=== PATIENT | male | born 1965 | race Caucasian/White ===

== ENCOUNTER 2021-10-15 19:54 | Inpatient (IN) | payer OTHER ==
[~2021-10-15] VITALS: Ht 190.5 cm; Wt 84.1 kg
[2021-10-15 20:37] LABS: BASOPHILS % (AUTO) 0.2 % (0-1); EOSINOPHILS % (AUTO) 0 % (0-6); LYMPHOCYTES # (AUTO) 1.2 X10'3 (1.1-4.8); LYMPHOCYTES % (AUTO) 11.7 % (21-51); MEAN CORPUSCULAR HEMOGLOBIN 31.2 PG (27.0-31.0); MEAN CORPUSCULAR HGB CONC 33.4 g/dL (33.0-36.5); MEAN CORPUSCULAR VOLUME 93.6 FL (78-98); MEAN PLATELET VOLUME 6.9 FL (7.4-10.4); MONOCYTES # (AUTO) 0.7 X10'3 (0-0.9); MONOCYTES % (AUTO) 6.2 % (2-12); NEUTROPHILS # (AUTO) 8.7 X10'3 (1.8-7.7); NEUTROPHILS % (AUTO) 81.9 % (42-75); PLATELET COUNT 284 X10'3 (140-440); RED BLOOD COUNT 5.45 X10'6 (4.70-6.10); WHITE BLOOD COUNT 10.6 X10'3 (4.5-11.0)
[2021-10-15 20:51] LABS: ALANINE AMINOTRANSFERASE 31 U/L (12-78); ALBUMIN 4.1 G/DL (3.4-5.0); ALBUMIN/GLOBULIN RATIO 1.1 (1.1-1.5); ALKALINE PHOSPHATASE 88 IU/L (46-116); ANION GAP 9 (8-16); ASPARTATE AMINO TRANSFERASE 25 U/L (10-37); BILIRUBIN,TOTAL 0.8 MG/DL (0.1-1.0); BLOOD UREA NITROGEN 17 MG/DL (7-18); BUN/CREATININE RATIO 16.3 (5.4-32.0); CALCIUM 9.1 MG/DL (8.5-10.1); CHLORIDE 103 MMOL/L (99-107); CREATININE 1.04 MG/DL (0.60-1.10); GLUCOSE 108 MG/DL (70-104); LIPASE 53 U/L (73-393); SODIUM 139 MMOL/L (135-145); TOTAL CARBON DIOXIDE 26.8 MMOL/L (24-32); TOTAL PROTEIN 7.9 G/DL (6.4-8.2); eGFR 74 ML/MIN
[2021-10-15 21:28] LABS: CLARITY,URINE SLIGHTLY CLOUDY (Clear); COLOR,URINE YELLOW (Yellow); GLUCOSE, URINE NEGATIVE (Neg); KETONES,URINE 40 mg/dl (Neg); LEUKOCYTE ESTERASE ,URINE NEGATIVE (Neg); NITRITES, URINE NEGATIVE (Neg); OCCULT BLOOD,URINE NEGATIVE (Neg); PROTEIN,URINE TRACE mg/dl (Neg); UROBILINOGEN,URINE 0.2 E.U/dL (0.2-1.0)
[2021-10-15 21:32] LABS: UA COLLECTION TYPE CLN CATCH MIDSTREAM
[2021-10-15 21:37] LABS: BACTERIA,URINE FEW /HPF (Neg); RBC,URINE 0-2 /HPF (0-2); WBC,URINE 0-4 /HPF (0-4)
[2021-10-15 21:38] LABS: HYALINE CASTS 0-3 /LPF (NEGATIVE); MUCUS STRANDS FEW /LPF (Neg); SQUAMOUS EPITHELIAL CELL,UR FEW /LPF (FEW); TRANSITIONAL EPI CELLS,URINE FEW /HPF
[2021-10-15] MEDS ORDERED: ondansetron/PF 4mg/2ml inj IV ONE (22:00)
[2021-10-15] MEDS ORDERED: normal saline 1000ML IV soln IVB ONE (22:00)
[2021-10-16] MEDS ORDERED: ondansetron/PF 4mg/2ml inj IV ONE (01:45)
[2021-10-16] MEDS ORDERED: magnesium 2GM in 50ml NS 50 ML IV PRN (02:45)
[2021-10-16] MEDS ORDERED: magnesium 4gm in 100ml NS 100 ML IV PRN (02:45)
[2021-10-16] MEDS ORDERED: potassium CL 10mEq/100ml bag 100 ML IV PRN (02:45)
[2021-10-16] MEDS ORDERED: morphine 2 MG/ML inj. syringe IV PRN (02:45)
[2021-10-16] MEDS ORDERED: ondansetron/PF 4mg/2ml inj IV PRN (02:45)
[2021-10-16] MEDS: normal saline 1000ml 1,000 ML IV SCH ×4 (03:01→22:59)
--- NOTE | 2021-10-16 03:16 | NUR ---
REVIEWED CXR CONFIRMING NG PLACEMENT.
--- NOTE | 2021-10-16 03:20 | NUR ---
Received report from JAZIEL Cuello. Awaiting patient arrival to the floor.
[2021-10-16] MEDS: morphine 2 MG/ML inj. syringe IV PRN ×2 (03:43→19:24)
[2021-10-16 03:45] VITALS: BP 149/88
[2021-10-16 03:53] LABS: MAGNESIUM 2.3 MG/DL (1.5-2.4); POTASSIUM 3.8 MMOL/L (3.5-5.1)
[2021-10-16] MEDS ORDERED: NO HOME MEDS (05:20)
--- NOTE | 2021-10-16 06:37 | NUR ---
Problems reprioritized. Patient report given, questions answered & plan of care reviewed with JAZIEL Ferguson.
[2021-10-16 07:00] VITALS: BP 135/73
--- NOTE | 2021-10-16 07:15 | NUR ---
Patient in room [facility]. I have received report from Mary SHERIFF and had the opportunity to ask questions and assume patient care.
[2021-10-16] MEDS: K and/or MAG REPLACEMENT MC SCH ×2 (08:00→20:00)
[2021-10-16 11:00] VITALS: BP 127/77
[2021-10-16] MEDS: diatr meglu/diatrizoate 30ml oral sol.-(3 dose) bottle PO SCH ×3 (11:39→17:34)
[2021-10-16 12:05] LABS: BASOPHILS % (AUTO) 0.2 % (0-1); EOSINOPHILS % (AUTO) 0.1 % (0-6); HEMATOCRIT 45.8 % (42.0-52.0); HEMOGLOBIN 15.3 g/dl (14.0-17.9); LYMPHOCYTES # (AUTO) 1.3 X10'3 (1.1-4.8); LYMPHOCYTES % (AUTO) 14.5 % (21-51); MEAN CORPUSCULAR HEMOGLOBIN 31.4 PG (27.0-31.0); MEAN CORPUSCULAR HGB CONC 33.4 g/dL (33.0-36.5); MEAN CORPUSCULAR VOLUME 94.1 FL (78-98); MEAN PLATELET VOLUME 6.9 FL (7.4-10.4); MONOCYTES # (AUTO) 0.7 X10'3 (0-0.9); MONOCYTES % (AUTO) 8.4 % (2-12); NEUTROPHILS # (AUTO) 6.7 X10'3 (1.8-7.7); NEUTROPHILS % (AUTO) 76.8 % (42-75); PLATELET COUNT 238 X10'3 (140-440); RED BLOOD COUNT 4.87 X10'6 (4.70-6.10); RED CELL DISTRIBUTION WIDTH 13.9 % (11.5-14.5); WHITE BLOOD COUNT 8.7 X10'3 (4.5-11.0)
[2021-10-16 12:23] LABS: ALANINE AMINOTRANSFERASE 26 U/L (12-78); ALBUMIN 3.5 G/DL (3.4-5.0); ALBUMIN/GLOBULIN RATIO 1.1 (1.1-1.5); ALKALINE PHOSPHATASE 77 IU/L (46-116); ANION GAP 9 (8-16); ASPARTATE AMINO TRANSFERASE 21 U/L (10-37); BLOOD UREA NITROGEN 22 MG/DL (7-18); CALCIUM 8.4 MG/DL (8.5-10.1); CHLORIDE 108 MMOL/L (99-107); GLUCOSE 99 MG/DL (70-104); POTASSIUM 3.9 MMOL/L (3.5-5.1); SODIUM 145 MMOL/L (135-145); TOTAL CARBON DIOXIDE 27.9 MMOL/L (24-32); TOTAL PROTEIN 6.8 G/DL (6.4-8.2); eGFR 77 ML/MIN
[2021-10-16] MEDS: Chloraseptic (Phenol) Spray 177ml MM PRN ×2 (13:58→19:09)
--- NOTE | 2021-10-16 17:50 | NUR ---
PAGER ID: [phone] MESSAGE: Phyllis Surg [id number] Re: [id number] David please call can we do a lactic Acid and pro marco patient appears to be really sick
--- NOTE | 2021-10-16 18:32 | NUR ---
PAGER ID: [phone] MESSAGE: Phyllis-Surg [phone] Re: [id number] David please call
--- NOTE | 2021-10-16 18:42 | NUR ---
Problems reprioritized. Patient report given, questions answered & plan of care reviewed with Mary SHERIFF.
[2021-10-16 20:00] VITALS: BP 131/79
[2021-10-17] VITALS (23 sets, daily range): BP systolic 106–136; BP diastolic 62–86
--- NOTE | 2021-10-17 00:44 | NUR ---
Student documentation: I have reviewed interventions, assessments performed and documented by Erick MALIK [facility].
--- NOTE | 2021-10-17 04:15 | NUR ---
Student documentation: I have reviewed and agree with all interventions, assessments performed and documented by Thomas Garcia Student Nurse. Student Medication Administration: For this medication-pass time frame, all medication were reviewed, dispensed, administered and documented per hospital policy by Thomas Garcia student nurse.
[2021-10-17] MEDS: Chloraseptic (Phenol) Spray 177ml MM PRN (05:46)
[2021-10-17] MEDS ORDERED: sevoflurane 250ml liquid IH ONE (06:00)
[2021-10-17 06:26] LABS: BASOPHILS % (AUTO) 0.1 % (0-1); EOSINOPHILS % (AUTO) 0.2 % (0-6); HEMATOCRIT 46.5 % (42.0-52.0); HEMOGLOBIN 15.9 g/dl (14.0-17.9); LYMPHOCYTES # (AUTO) 1.3 X10'3 (1.1-4.8); MEAN CORPUSCULAR HEMOGLOBIN 32.5 PG (27.0-31.0); MEAN CORPUSCULAR HGB CONC 34.1 g/dL (33.0-36.5); MEAN CORPUSCULAR VOLUME 95.3 FL (78-98); MEAN PLATELET VOLUME 7.2 FL (7.4-10.4); MONOCYTES % (AUTO) 10.6 % (2-12); NEUTROPHILS # (AUTO) 6.9 X10'3 (1.8-7.7); NEUTROPHILS % (AUTO) 75.1 % (42-75); PLATELET COUNT 229 X10'3 (140-440); RED BLOOD COUNT 4.88 X10'6 (4.70-6.10); RED CELL DISTRIBUTION WIDTH 13.8 % (11.5-14.5); WHITE BLOOD COUNT 9.2 X10'3 (4.5-11.0)
--- NOTE | 2021-10-17 06:32 | NUR ---
Problems reprioritized. Patient report given, questions answered & plan of care reviewed with JAZIEL Glover.
[2021-10-17 06:33] LABS: ALANINE AMINOTRANSFERASE 21 U/L (12-78); ALBUMIN 3.3 G/DL (3.4-5.0); ALBUMIN/GLOBULIN RATIO 0.9 (1.1-1.5); ALKALINE PHOSPHATASE 72 IU/L (46-116); ANION GAP 12 (8-16); ASPARTATE AMINO TRANSFERASE 16 U/L (10-37); BILIRUBIN,TOTAL 1.5 MG/DL (0.1-1.0); BLOOD UREA NITROGEN 21 MG/DL (7-18); BUN/CREATININE RATIO 19.1 (5.4-32.0); CALCIUM 8.7 MG/DL (8.5-10.1); CHLORIDE 105 MMOL/L (99-107); GLUCOSE 103 MG/DL (70-104); POTASSIUM 3.7 MMOL/L (3.5-5.1); SODIUM 143 MMOL/L (135-145); TOTAL CARBON DIOXIDE 26.2 MMOL/L (24-32); eGFR 69 ML/MIN
--- NOTE | 2021-10-17 06:41 | NUR ---
Patient in room [facility]. I have received report from ericka espinoza and had the opportunity to ask questions and assume patient care.
[2021-10-17] MEDS: K and/or MAG REPLACEMENT MC SCH ×2 (08:00→20:00)
[2021-10-17] MEDS ORDERED: ringers solution, lacted 1,000 ML IV SCH (08:25)
[2021-10-17] MEDS ORDERED: morphine 2 MG/ML inj. syringe IV PRN (08:25)
[2021-10-17] MEDS ORDERED: ondansetron/PF 4mg/2ml inj IV PRN (08:25)
[2021-10-17] MEDS ORDERED: fentaNYL/PF 50MCG/1 ML 2ML syringe IV PRN ×2 (08:25)
[2021-10-17] MEDS ORDERED: morphine 4 MG/ML inj SYRINge IV PRN (08:25)
[2021-10-17] MEDS ORDERED: labetalol 20mg/4ml (5mg/ml) syringe IV PRN (08:25)
[2021-10-17] MEDS ORDERED: hydrALAZINE 20mg/ml inj. IV PRN (08:25)
--- NOTE | 2021-10-17 08:27 | NUR ---
REPORT CALLED TO NICHELLE IN RECOVERY.
[2021-10-17] MEDS ORDERED: propofol inj 20 ML IV ONE (08:28)
[2021-10-17] MEDS ORDERED: ondansetron/PF 4mg/2ml inj ONE (08:28)
[2021-10-17] MEDS ORDERED: LIDOcaine 2% (20mg/ml) 5ml vial ONE (08:28)
[2021-10-17] MEDS ORDERED: dexamethasone sod phosphate 4mg/ml inj. ONE (08:28)
[2021-10-17] MEDS ORDERED: rocuronium 10mg/ml inj IV ONE (08:28)
--- NOTE | 2021-10-17 08:35 | NUR ---
RECEIVED REPORT FROM NANCIE RN, PT AND SIGNIFICANT OTHER ARRIVED VIA BED DURING PHONE CALL. PTS SIGNIFICANT OTHER VERY UPSET AND STATED SHE HAD NOT TALKED TO ANY DOCTOR AND DURING THE ANESTHESIA INTERVIEW SHE WANTED TO WAIT UNTIL SHE SPOKE WITH THE SURGEON.
[2021-10-17] MEDS ORDERED: BUPIVAcaine 0.5% inj/PF 30 ML ONE (08:41)
[2021-10-17] MEDS ORDERED: FENTANYL CITRATE/PF 50 MCG/1 ML VIAL ONE ×2 (08:53→08:54)
[2021-10-17] MEDS ORDERED: midazolam 1 mg/ML 2ml injection ONE (08:54)
[2021-10-17] MEDS ORDERED: BUPIVAcaine 0.5% inj/PF 30 ml vial IJ ONE (09:00)
[2021-10-17] MEDS ORDERED: glycopyrrolate 0.2mg/ml inj ONE (09:35)
--- NOTE | 2021-10-17 09:56 | NUR ---
Received from OR via BED, accompanied by Anesthesiologist DR. BETH and report given by Anesthesiolgist. PT IS DROWSY BUT EASILY AROUNSABLE. PT IS ANSWERING QUESTIONS APPROPRIATELY. 3 LEFT LATERAL PUNCTURE SITES PRESENT, CLOSED WITH DERMABOND, OPEN TO AIR, NO SIGNS OF BLEEDING NOTED. MILD REDNESS NOTED ON ABDOMEN, BLADDER WAS EMPTIED IN THE OPERATING ROOM, VITAL SIGNS STABLE
--- NOTE | 2021-10-17 10:46 | NUR ---
REPORT CALLED TO [facility] [place] PREPARED FOR TRANSPORT.
[2021-10-17] MEDS: morphine 2 MG/ML inj. syringe IV PRN ×2 (13:12→19:25)
--- NOTE | 2021-10-17 18:21 | NUR ---
Problems reprioritized. Patient report given, questions answered & plan of care reviewed with QI SHERIFF.
[2021-10-17] MEDS: normal saline 1000ml 1,000 ML IV SCH ×2 (18:45→20:41)
--- NOTE | 2021-10-17 18:45 | NUR ---
Patient in room [facility]. I have received report from JAZIEL Glover and had the opportunity to ask questions and assume patient care. at bedside, no complaints at this time.
[2021-10-18] VITALS: BP 97/55
--- NOTE | 2021-10-18 06:03 | NUR ---
Problems reprioritized. Patient report given, questions answered & plan of care reviewed with JAZIEL Glover.
--- NOTE | 2021-10-18 06:19 | NUR ---
Problems reprioritized. Patient report given, questions answered & plan of care reviewed with QI SHERIFF.
[2021-10-18 06:58] VITALS: BP 109/67
[2021-10-18 06:58] LABS: BASOPHILS % (AUTO) 0.3 % (0-1); EOSINOPHILS # (AUTO) 0.1 X10'3 (0-0.9); HEMATOCRIT 40.1 % (42.0-52.0); HEMOGLOBIN 13.6 g/dl (14.0-17.9); LYMPHOCYTES # (AUTO) 1.7 X10'3 (1.1-4.8); LYMPHOCYTES % (AUTO) 40.1 % (21-51); MEAN CORPUSCULAR HEMOGLOBIN 32.2 PG (27.0-31.0); MEAN CORPUSCULAR HGB CONC 33.9 g/dL (33.0-36.5); MEAN CORPUSCULAR VOLUME 94.9 FL (78-98); MEAN PLATELET VOLUME 7.3 FL (7.4-10.4); MONOCYTES # (AUTO) 0.5 X10'3 (0-0.9); MONOCYTES % (AUTO) 11.9 % (2-12); NEUTROPHILS % (AUTO) 45.7 % (42-75); PLATELET COUNT 202 X10'3 (140-440); RED BLOOD COUNT 4.22 X10'6 (4.70-6.10); WHITE BLOOD COUNT 4.3 X10'3 (4.5-11.0)
[2021-10-18 07:13] LABS: ALANINE AMINOTRANSFERASE 17 U/L (12-78); ALBUMIN 2.9 G/DL (3.4-5.0); ALBUMIN/GLOBULIN RATIO 0.9 (1.1-1.5); ALKALINE PHOSPHATASE 62 IU/L (46-116); ANION GAP 6 (8-16); ASPARTATE AMINO TRANSFERASE 16 U/L (10-37); BILIRUBIN,TOTAL 0.9 MG/DL (0.1-1.0); BLOOD UREA NITROGEN 17 MG/DL (7-18); BUN/CREATININE RATIO 19.5 (5.4-32.0); CALCIUM 7.9 MG/DL (8.5-10.1); CHLORIDE 109 MMOL/L (99-107); CREATININE 0.87 MG/DL (0.60-1.10); GLUCOSE 90 MG/DL (70-104); POTASSIUM 3.7 MMOL/L (3.5-5.1); SODIUM 143 MMOL/L (135-145); TOTAL CARBON DIOXIDE 28.1 MMOL/L (24-32); TOTAL PROTEIN 6.1 G/DL (6.4-8.2); eGFR 90 ML/MIN
[2021-10-18] MEDS: normal saline 1000ml 1,000 ML IV SCH (07:25)
[2021-10-18] MEDS: K and/or MAG REPLACEMENT MC SCH (08:00)
[2021-10-18 08:21] VITALS: BP 109/67
[2021-10-18 11:00] VITALS: BP 104/56
[2021-10-18] MEDS ORDERED: PRED10TA PO (12:31)
[2021-10-18] MEDS ORDERED: TRAM50TA2 PO (14:30)
--- NOTE | 2021-10-18 16:02 | NUR ---
PT DISCHARGED IN STABLE CONDITION. LEFT FACILITY IN PRIVATE VEHICLE WITH GIRLFRIEND. IV DC. ALL BELONGINGS IN HAND. FOLLOW UP INSTRUCTIONS GIVEN, ALL QUESTIONS ANSWERED. Addendum: 10/18/21 at 1603 by Wendi Harmon RN Amended: Links added.
== END 2021-10-18 15:30 | disposition home or self-care (01) | DRG 358 ==
LOC: ER 19:55 → ED HOLD 10-16 02:48 → SUR 3N 10-16 03:35
PROVIDERS: ADMIT Internal Medicine; ATTEND Internal Medicine
PROC: 0D9670Z Drainage of Stomach with Drainage Device, Via Natural or Artificial Opening (ICD-10-PCS; 2021-10-16)
PROC: 0WJG4ZZ Inspection of Peritoneal Cavity, Percutaneous Endoscopic Approach (ICD-10-PCS; principal; 2021-10-18)
DX: K56.600 Partial intestinal obstruction, unspecified as to cause (principal); Z20.822 Contact with and (suspected) exposure to COVID-19
CPT/HCPCS: 96361; 96374; 96375; 99285; Z7506; 36415; 71045; 74176; 80053; 81001; 82948; 83605; 83690; 83735; 84132; 85025; 85610; 87081; 87635; A4618; A7000; C1758; C9803; G0378; J1100; J2250; J2270; J2405; J2704; J3010; J3490; J7030; J7120; Q9963; S0020